=== PATIENT | male | born 1950 | race Caucasian/White ===

== ENCOUNTER 2021-03-03 08:00 | Inpatient (IN) ==
[2021-03-03] MEDS ORDERED: GLUCAGON 1 MG VIAL IM PRN (08:05)
[2021-03-03] MEDS ORDERED: DEXTROSE 50% 25 GM/50 ML SYRINGE IV PRN (08:05)
[2021-03-03] MEDS ORDERED: NITROGLYCERIN SL 0.4 MG TABLET SL PRN (11:02)
[2021-03-03] MEDS ORDERED: MORPHINE 2 MG/1 ML SYRINGE IV PRN (11:02)
[2021-03-03] MEDS ORDERED: CLORAZEPATE 3.75 MG TABLET PO PRN (11:02)
[2021-03-03 16:03] LABS: Basophils # 0.1 10*3/uL (0.0-0.2); Basophils % 0.5 % (0.0-0.8); Eosinophils # 0.2 10*3/uL (0.0-0.87); Eosinophils % 1.5 % (0.00-10.9); Hematocrit 36.8 VOL% (42.0-52.0); Immature Granulocytes % 0.6 %; Immature Granulocytes Absolute 0.07 #; Lymphocytes # 1.1 10*3/uL (1.4-4.0); Lymphocytes % 9.5 % (21.2-54.2); Mean Corpuscular HGB Conc 32.6 GM/DL (32-36); Mean Corpuscular Volume 88.5 FL (87-102); Mean Platelet Volume 9.6 FL (9.6-12.0); Monocytes % 7.4 % (1.7-12.7); Neutrophils % 80.5 % (38.7-73.9); Platelet Count 230 T/CUMM (130-400); Red Blood Count 4.16 MC/CUMM (3.8-5.5); Red Cell Distribution Width 14.5 % (9.3-17.3); White Blood Count 11.5 T/CUMM (4-12)
[2021-03-03 16:23] LABS: Albumin 3.3 G/DL (3.4-5.0); Bilirubin,Total 1.1 MG/DL (0.20-1.00); Calcium 9.4 MG/DL (8.5-10.1); Potassium 3.8 MMOL/L (3.5-5.1); Total Protein 7.3 G/DL (6.4-8.2)
[2021-03-03 16:26] LABS: Osmolality,Calculated 280.2 MOS/KG (273-304)
[2021-03-03 16:47] LABS: Allen Test Positive; Pt O2 Delivery Device Room Air
[2021-03-03 16:48] LABS: ABG Base Excess 10.9 MMOL/L (-2.5-2.5); ABG HCO3 34.6 MMOL/L (20-26); ABG Oxygen Saturation 91.6 % (95-100); ABG PCO2 53.7 MM HG (35-48); ABG PH 7.448 (7.35-7.45); ABG PO2 59.8 MM HG (80-95); ABG TCO2 32.7 MMOL/L (23-27)
[2021-03-03] MEDS: CHLORHEXIDINE 4% SOLN 118 ML BOTTLE TOP SCH ×2 (17:36→21:05)
[2021-03-03] MEDS: CHLORHEXIDINE 0.12% ORAL RINSE 60 ML BOTTLE SWISH/SPIT SCH (21:04)
[2021-03-04] MEDS ORDERED: hydrALAZINE 20 MG/1 ML VIAL IV PRN (00:06)
[2021-03-04] MEDS ORDERED: PAPAVERINE 60 MG/2 ML VIAL ONE (04:13)
[2021-03-04] MEDS ORDERED: VANCOMYCIN 500 MG VIAL ONE (04:14)
[2021-03-04] MEDS ORDERED: VANCOMYCIN 1,000 MG VIAL ONE (04:14)
[2021-03-04] MEDS: CHLORHEXIDINE 4% SOLN 118 ML BOTTLE TOP SCH (04:30)
[2021-03-04] MEDS ORDERED: AMIODARONE INJ 150 MG in DEXTROSE 5% 100 ML IV ONE ×2 (04:54→05:30)
[2021-03-04] MEDS ORDERED: DILTIAZEM 50 MG/10 ML VIAL IV ONE ×2 (04:55→05:30)
[2021-03-04] MEDS ORDERED: VECURONIUM 10 MG VIAL IV ONE (04:59)
[2021-03-04] MEDS ORDERED: PHENYLEPHRINE 10 MG/1 ML VIAL IV ONE ×3 (04:59→11:10)
[2021-03-04] MEDS ORDERED: AMIODARONE INJ 450 MG in DEXTROSE 5% 241 ML IV SCH ×2 (05:00→11:45)
[2021-03-04] MEDS ORDERED: CEFUROXIME INJ 1,500 MG in SODIUM CHLORIDE 0.9% 100 ML IV ONE (05:00)
[2021-03-04] MEDS ORDERED: SODIUM CHLORIDE 0.9% 100 ML IV ONE (05:02)
[2021-03-04] MEDS ORDERED: SODIUM CHLORIDE 0.9% 1,000 ML IV ONE (05:02)
[2021-03-04] MEDS ORDERED: ETOMIDATE 40 MG/20 ML VIAL IV ONE (05:02)
[2021-03-04] MEDS ORDERED: NITROGLYCERIN DRIP 50 MG/250 ML BOTTLE IV ONE (05:02)
[2021-03-04] MEDS ORDERED: AMINOCAPROIC ACID 5,000 MG/20 ML VIAL ONE (05:02)
[2021-03-04] MEDS ORDERED: SODIUM CHLORIDE 0.9% 250 ML IV ONE ×2 (05:02→10:03)
[2021-03-04] MEDS ORDERED: ePHEDrine 50 MG/ML VIAL ONE (05:02)
[2021-03-04] MEDS ORDERED: CALCIUM CHLORIDE 1,000 MG/10 ML VIAL IV ONE ×3 (05:02→11:24)
[2021-03-04] MEDS ORDERED: LACTATED RINGERS 0 ML IV ONE (05:02)
[2021-03-04] MEDS ORDERED: MIDAZOLAM 10 MG/2 ML VIAL ONE ×4 (05:02→09:07)
[2021-03-04] MEDS ORDERED: SUFentanil 250 MCG/5 ML AMP ONE ×2 (05:02→05:03)
[2021-03-04] MEDS ORDERED: LIDOCAINE 2% 5 ML VIAL ONE ×2 (05:16→10:58)
[2021-03-04] MEDS ORDERED: MINERAL OIL/PETROLATUM OPH OINT 3.5 GM TUBE ONE (05:35)
[2021-03-04] MEDS ORDERED: DILTIAZEM INJ 100 MG in SODIUM CHLORIDE 0.9% 100 ML IV SCH (06:00)
[2021-03-04] MEDS ORDERED: ADENOSINE 6 MG/2 ML VIAL ONE (07:10)
[2021-03-04 07:39] LABS: ABG Base Excess 5.6 MMOL/L (-2.5-2.5); ABG HCO3 29.1 MMOL/L (20-26); ABG Oxygen Saturation 80.6 % (95-100); ABG PH 7.312 (7.35-7.45); ABG PO2 51.2 MM HG (80-95); ABG TCO2 30.9 MMOL/L (23-27); Glucose Heart Surgery 228 MG/DL (74-106); Hematocrit Heart Surgery 37.2 PERCENT (42-52); Hemoglobin Heart Surgery 12.1 G/DL (14.0-18.0); Ionized Calcium Arterial 1.16 MMOL/L (1.21-1.46); PH Patient Temp Arterial 7.312; PO2 Patient Temp Arterial 51.2 MM HG; Patient Temperature 37 CELCIUS; Potassium Heart/CVR 3.8 MMOL/L (3.5-5.1); Sodium Heart/CVR 138 MMOL/L (135-145)
[2021-03-04] MEDS ORDERED: POTASSIUM CHLORIDE RIDER 20 MEQ/100 ML PREMIX IV ONE (08:02)
[2021-03-04] MEDS ORDERED: ALBUMIN 5% 25.0 GM/500 ML VIAL IV ONE (08:02)
[2021-03-04] MEDS ORDERED: PHENYLEPHRINE DRIP 40 MG/250 ML PREMIX IV ONE (08:02)
[2021-03-04 08:24] LABS: Bilirubin,Urine Negative (Negative); Blood, Urine Small mg/dL (Negative); Glucose,Urine (UA) 50 mg/dL (Negative); Ketones,Urine 20 mg/dL (Negative); Nitrite,Urine Negative (Negative); Protein,Urine 30 MG/DL; RBC,Urine 7 /HPF (0-4); Urine Appearance CLEAR (Clear); Urine Color Yellow (Yellow); Urine Specific Gravity 1.017 (1.001-1.035); Urine Urobilinogen < 2.0 EU/DL (0.2-1.0)
[2021-03-04 08:44] LABS: Hematocrit Heart Surgery 25.9 PERCENT (42-52); Hemoglobin Heart Surgery 8.3 G/DL (14.0-18.0); PCO2 Patient Temp Venous 43.5 MM HG; PH Patient Temp Venous 7.453; PO2 Patient Temp Venous 33.8 MM HG; Potassium Heart/CVR 4.5 MMOL/L (3.5-5.1); VBG Base Excess 6.2 MEQ/L (0-4); VBG HCO3 29.8 MEQ/L (24-28); VBG Oxygen Saturation 76.7 %; VBG PCO2 50.3 MMHG (41-51); VBG PH 7.409; VBG PO2 41.7 MMHG (17-40); VBG Total CO2 29.7 MMOL/L
[2021-03-04] MEDS ORDERED: SEVOFLURANE 1 UNIT/15 MINUTE INH ONE (08:55)
[2021-03-04] MEDS ORDERED: LACTATED RINGERS 1,000 ML IV ONE (08:55)
[2021-03-04 09:22] LABS: Hemoglobin Heart Surgery 8.7 G/DL (14.0-18.0); PCO2 Patient Temp Venous 36.6 MM HG; PH Patient Temp Venous 7.512; PO2 Patient Temp Venous 32.4 MM HG; Potassium Heart/CVR 4.4 MMOL/L (3.5-5.1); VBG Base Excess 6.3 MEQ/L (0-4); VBG HCO3 29.8 MEQ/L (24-28); VBG Oxygen Saturation 77.8 %; VBG PCO2 42.3 MMHG (41-51); VBG PH 7.467; VBG Total CO2 28.3 MMOL/L
[2021-03-04] MEDS ORDERED: HEPARIN/NACL 0.9% 2 UNITS/ML 1,000 UNIT/500 ML BAG IV ONE (09:41)
[2021-03-04 09:47] LABS: PCO2 Patient Temp Venous 37.1 MM HG; PH Patient Temp Venous 7.511; PO2 Patient Temp Venous 31.3 MM HG; Potassium Heart/CVR 4.8 MMOL/L (3.5-5.1); VBG Base Excess 5.7 MEQ/L (0-4); VBG HCO3 29.3 MEQ/L (24-28); VBG Oxygen Saturation 72.6 %; VBG PCO2 38.8 MMHG (41-51); VBG PH 7.496; VBG PO2 33.6 MMHG (17-40); VBG Total CO2 30.5 MMOL/L
[2021-03-04] MEDS: SODIUM CHLORIDE 0.9% 1,000 ML IV SCH ×2 (10:09→10:10)
[2021-03-04] MEDS: CHLORHEXIDINE 0.12% ORAL RINSE 60 ML BOTTLE SWISH/SPIT SCH ×2 (10:10→21:11)
[2021-03-04] MEDS ORDERED: DOBUTamine 500 MG/250 ML PREMIX IV ONE ×2 (10:21→11:15)
[2021-03-04] MEDS ORDERED: THROMBIN TOPICAL (RECOMBINANT) 5,000 UNIT VIAL TOP ONE (10:29)
[2021-03-04 10:49] LABS: ABG Base Excess 2.4 MMOL/L (-2.5-2.5); ABG HCO3 26.6 MMOL/L (20-26); ABG PH 7.316 (7.35-7.45); ABG TCO2 27.5 MMOL/L (23-27); Glucose Heart Surgery 350 MG/DL (74-106); Hematocrit Heart Surgery 28.1 PERCENT (42-52); Hemoglobin Heart Surgery 9.1 G/DL (14.0-18.0); Ionized Calcium Arterial 1.18 MMOL/L (1.21-1.46); PH Patient Temp Arterial 7.316; Patient Temperature 37 CELCIUS; Potassium Heart/CVR 3.7 MMOL/L (3.5-5.1); Sodium Heart/CVR 131 MMOL/L (135-145)
[2021-03-04] MEDS ORDERED: methylPREDNISolone SOD SUC 1,000 MG/8 ML VIAL ONE (10:58)
[2021-03-04] MEDS ORDERED: MAGNESIUM SULFATE 5 GM/10 ML VIAL IV ONE (10:58)
[2021-03-04] MEDS ORDERED: ALBUMIN 25% 25 GM/100 ML VIAL IV ONE (10:58)
[2021-03-04] MEDS ORDERED: DEXTROSE 5% KCL 20 MEQ 40 MEQ/2,000 ML BAG IV ONE (10:59)
[2021-03-04] MEDS ORDERED: HEPARIN 10,000 UNIT/10 ML VIAL ONE (10:59)
[2021-03-04] MEDS ORDERED: MANNITOL 12.5 GM/50 ML VIAL IV ONE (10:59)
[2021-03-04] MEDS ORDERED: FUROSEMIDE 20 MG/2 ML VIAL ONE (10:59)
[2021-03-04] MEDS ORDERED: PROTAMINE SULFATE 250 MG/25 ML VIAL IV ONE (10:59)
[2021-03-04] MEDS ORDERED: PROTAMINE SULFATE 50 MG/5 ML VIAL IV ONE (11:00)
[2021-03-04] MEDS ORDERED: SODIUM BICARBONATE 50 MEQ/50 ML VIAL IV ONE (11:00)
[2021-03-04] MEDS ORDERED: AMIODARONE 450 MG/9 ML VIAL IV ONE (11:15)
[2021-03-04] MEDS: PHENYLEPHRINE DRIP 40 MG/250 ML PREMIX IV PRN ×2 (11:45→20:20)
[2021-03-04] MEDS ORDERED: DOBUTamine 500 MG/250 ML PREMIX IV PRN (11:45)
[2021-03-04] MEDS: SODIUM CHLORIDE 0.45% 1,000 ML IV SCH ×2 (11:45)
[2021-03-04] MEDS: LACTATED RINGERS 1,000 ML IV PRN ×2 (11:45→13:40)
[2021-03-04] MEDS ORDERED: MAGNESIUM SULF RIDER 4 GM/100 ML PREMIX IV PRN (12:12)
[2021-03-04] MEDS ORDERED: INSULIN REGULAR 100 UNIT/ML IV ONE (12:12)
[2021-03-04] MEDS ORDERED: NITROPRUSSIDE 100 MG in DEXTROSE 5% 250 ML IV PRN (12:12)
[2021-03-04] MEDS ORDERED: LACTATED RINGERS 250 ML IV PRN (12:12)
[2021-03-04] MEDS ORDERED: ONDANSETRON 4 MG/2 ML VIAL IV PRN (12:12)
[2021-03-04] MEDS ORDERED: CALCIUM CHLORIDE 1,000 MG/10 ML SYRINGE IV PRN (12:12)
[2021-03-04] MEDS ORDERED: MIDAZOLAM 10 MG/2 ML VIAL IV PRN (12:12)
[2021-03-04] MEDS ORDERED: CHLORHEXIDINE 4% SOLN 118 ML BOTTLE TOP PRN (12:12)
[2021-03-04] MEDS ORDERED: INSULIN REGULAR DRIP 100 ML IV SCH (12:12)
[2021-03-04] MEDS ORDERED: MAGNESIUM SULF RIDER 2 GM/50 ML PREMIX IV PRN (12:12)
[2021-03-04] MEDS ORDERED: VECURONIUM 10 MG VIAL IV PRN ×2 (12:12)
[2021-03-04] MEDS ORDERED: ACETAMINOPHEN 650 MG SUPP RECTAL PRN (12:12)
[2021-03-04] MEDS ORDERED: INSULIN REGULAR 100 UNIT/ML IV PRN (12:12)
[2021-03-04 12:21] LABS: ABG HCO3 25.3 MMOL/L (20-26); ABG PH 7.327 (7.35-7.45); ABG PO2 91.5 MM HG (80-95); ABG TCO2 25.4 MMOL/L (23-27); Glucose Heart Surgery 323 MG/DL (74-106); Hematocrit Heart Surgery 31.9 PERCENT (42-52); Hemoglobin Heart Surgery 10.3 G/DL (14.0-18.0); Potassium Heart/CVR 3.8 MMOL/L (3.5-5.1)
[2021-03-04 12:31] LABS: Basophils # 0.1 10*3/uL (0.0-0.2); Basophils % 0.2 % (0.0-0.8); Hematocrit 30.4 VOL% (42.0-52.0); Hemoglobin 9.9 GM/DL (14.0-18.0); Immature Granulocytes Absolute 0.22 #; Lymphocytes # 0.3 10*3/uL (1.4-4.0); Lymphocytes % 1.3 % (21.2-54.2); Mean Corpuscular HGB Conc 32.6 GM/DL (32-36); Mean Corpuscular Volume 89.4 FL (87-102); Mean Platelet Volume 9.7 FL (9.6-12.0); Monocytes % 6.7 % (1.7-12.7); Neutrophils % 90.8 % (38.7-73.9); Platelet Count 260 T/CUMM (130-400); Red Cell Distribution Width 14.6 % (9.3-17.3); White Blood Count 21.2 T/CUMM (4-12)
[2021-03-04] MEDS ORDERED: DEXTROSE 50% 25 GM/50 ML SYRINGE IV PRN ×2 (12:38→12:39)
[2021-03-04 12:43] LABS: INR 1.1; PT Patient Result 12.4 SECS (10.5-12.0); Partial Thromboplastin Time 28.8 SECS (23.8-32.1)
[2021-03-04] MEDS: POTASSIUM CHLORIDE RIDER 20 MEQ/100 ML PREMIX IV PRN ×3 (12:45→23:41)
[2021-03-04 12:54] LABS: Albumin 2.7 G/DL (3.4-5.0); Bilirubin,Total 1.8 MG/DL (0.20-1.00); Calcium 9.6 MG/DL (8.5-10.1); Osmolality,Calculated 286.1 MOS/KG (273-304); Potassium 3.9 MMOL/L (3.5-5.1); Total Protein 5.5 G/DL (6.4-8.2)
[2021-03-04] MEDS: POTASSIUM CHLORIDE RIDER 10 MEQ/100 ML PREMIX IV PRN ×2 (13:15→20:55)
[2021-03-04 13:44] LABS: Band Neutrophils 3 % (0-10); Lymphocytes 3 % (20-55); Platelet Estimate Normal; Segmented Neutrophils 90 % (50-85); Total Cells Counted 100
[2021-03-04 13:45] LABS: Microcytosis Slight; Ovalocytes Slight; Polychromasia Slight
[2021-03-04] MEDS: ALBUMIN 5% 12.5 GM/250 ML VIAL IV PRN ×2 (15:00→15:32)
[2021-03-04 15:29] LABS: ABG Base Excess 3.1 MMOL/L (-2.5-2.5); ABG HCO3 27.2 MMOL/L (20-26); ABG Oxygen Saturation 99.7 % (95-100); ABG PCO2 40.4 MM HG (35-48); Glucose Heart Surgery 316 MG/DL (74-106); Hematocrit Heart Surgery 38.7 PERCENT (42-52); Hemoglobin Heart Surgery 12.6 G/DL (14.0-18.0)
[2021-03-04 16:07] LABS: CKMB % 10.7 %
[2021-03-04 16:13] LABS: High Sensitive Troponin I* 5032.1 ng/L (0-78)
[2021-03-04 18:13] LABS: ABG Base Excess 3.2 MMOL/L (-2.5-2.5); ABG HCO3 27.3 MMOL/L (20-26); ABG Oxygen Saturation 99.7 % (95-100); ABG PH 7.436 (7.35-7.45); ABG TCO2 25.2 MMOL/L (23-27); Glucose Heart Surgery 268 MG/DL (74-106); Hematocrit Heart Surgery 29.8 PERCENT (42-52); Hemoglobin Heart Surgery 9.6 G/DL (14.0-18.0); Potassium Heart/CVR 3.6 MMOL/L (3.5-5.1)
[2021-03-04] MEDS: AMIODARONE INJ 450 MG in DEXTROSE 5% 241 ML IV SCH (18:39)
[2021-03-04] MEDS ORDERED: FUROSEMIDE 40 MG/4 ML VIAL IV PRN (18:59)
[2021-03-04] MEDS: CEFUROXIME INJ 1,500 MG in SODIUM CHLORIDE 0.9% 100 ML IV SCH (20:01)
[2021-03-04 20:15] LABS: ABG Base Excess 2.7 MMOL/L (-2.5-2.5); ABG HCO3 26.9 MMOL/L (20-26); ABG PCO2 45.9 MM HG (35-48); ABG PH 7.395 (7.35-7.45); ABG TCO2 25.6 MMOL/L (23-27); Glucose Heart Surgery 238 MG/DL (74-106); Hematocrit Heart Surgery 30.8 PERCENT (42-52); Potassium Heart/CVR 3.8 MMOL/L (3.5-5.1)
[2021-03-04 20:41] LABS: CKMB % 10.2 %
[2021-03-04 20:45] LABS: High Sensitive Troponin I* 13665.2 ng/L (0-78)
[2021-03-04] MEDS: MORPHINE 10 MG/1 ML VIAL IV PRN (21:06)
[2021-03-04 22:49] LABS: ABG Base Excess 2.7 MMOL/L (-2.5-2.5); ABG HCO3 26.7 MMOL/L (20-26); ABG Oxygen Saturation 90.7 % (95-100); ABG PCO2 47.3 MM HG (35-48); ABG PH 7.385 (7.35-7.45); ABG PO2 61.6 MM HG (80-95); ABG TCO2 25.9 MMOL/L (23-27); Glucose Heart Surgery 199 MG/DL (74-106); Hematocrit Heart Surgery 30.2 PERCENT (42-52); Hemoglobin Heart Surgery 9.8 G/DL (14.0-18.0); Potassium Heart/CVR 3.9 MMOL/L (3.5-5.1)
[2021-03-04 23:31] LABS: ABG Base Excess 2.4 MMOL/L (-2.5-2.5); ABG HCO3 26.4 MMOL/L (20-26); ABG Oxygen Saturation 90.6 % (95-100); ABG PCO2 50.6 MM HG (35-48); ABG PH 7.359 (7.35-7.45); ABG TCO2 26.2 MMOL/L (23-27); Glucose Heart Surgery 193 MG/DL (74-106); Hematocrit Heart Surgery 29.8 PERCENT (42-52); Hemoglobin Heart Surgery 9.6 G/DL (14.0-18.0); Potassium Heart/CVR 3.8 MMOL/L (3.5-5.1)
[2021-03-05] MEDS: POTASSIUM CHLORIDE RIDER 10 MEQ/100 ML PREMIX IV PRN (00:15)
[2021-03-05] MEDS: MORPHINE 10 MG/1 ML VIAL IV PRN ×3 (01:09→10:39)
[2021-03-05 02:16] LABS: ABG Base Excess 2.7 MMOL/L (-2.5-2.5); ABG HCO3 26.7 MMOL/L (20-26); ABG Oxygen Saturation 92.4 % (95-100); ABG PCO2 51.9 MM HG (35-48); ABG PH 7.355 (7.35-7.45); ABG PO2 67.7 MM HG (80-95); ABG TCO2 26.6 MMOL/L (23-27); Glucose Heart Surgery 152 MG/DL (74-106); Hematocrit Heart Surgery 30.1 PERCENT (42-52); Hemoglobin Heart Surgery 9.7 G/DL (14.0-18.0)
[2021-03-05] MEDS: POTASSIUM CHLORIDE RIDER 20 MEQ/100 ML PREMIX IV PRN (02:58)
[2021-03-05] MEDS ORDERED: NITROGLYCERIN DRIP 50 MG/250 ML BOTTLE IV ONE (03:21)
[2021-03-05] MEDS: NITROGLYCERIN DRIP 50 MG/250 ML BOTTLE IV PRN ×2 (03:23→16:37)
[2021-03-05 04:10] LABS: ABG Base Excess 2.5 MMOL/L (-2.5-2.5); ABG HCO3 28.5 MMOL/L (20-26); ABG Oxygen Saturation 84.1 % (95-100); ABG PCO2 51.1 MM HG (35-48); ABG PH 7.364 (7.35-7.45); ABG PO2 50.5 MM HG (80-95); ABG TCO2 30.1 MMOL/L (23-27); Glucose Heart Surgery 123 MG/DL (74-106); Hemoglobin Heart Surgery 10.1 G/DL (14.0-18.0); Potassium Heart/CVR 4.3 MMOL/L (3.5-5.1)
[2021-03-05 04:12] LABS: Basophils % 0.1 % (0.0-0.8); Hematocrit 28.8 VOL% (42.0-52.0); Hemoglobin 9.5 GM/DL (14.0-18.0); Immature Granulocytes % 0.7 %; Immature Granulocytes Absolute 0.17 #; Lymphocytes # 0.4 10*3/uL (1.4-4.0); Lymphocytes % 1.4 % (21.2-54.2); Mean Corpuscular Volume 90.3 FL (87-102); Mean Platelet Volume 9.8 FL (9.6-12.0); Monocytes % 7.1 % (1.7-12.7); Neutrophils % 90.7 % (38.7-73.9); Platelet Count 230 T/CUMM (130-400); Red Blood Count 3.19 MC/CUMM (3.8-5.5); Red Cell Distribution Width 14.7 % (9.3-17.3); White Blood Count 25.7 T/CUMM (4-12)
[2021-03-05 04:29] LABS: Albumin 3.2 G/DL (3.4-5.0); Bilirubin,Direct 0.32 MG/DL (0.0-0.20); Bilirubin,Total 0.9 MG/DL (0.20-1.00); CKMB % 11.9 %; Osmolality,Calculated 286.4 MOS/KG (273-304); Potassium 4.3 MMOL/L (3.5-5.1); Total Protein 6.3 G/DL (6.4-8.2)
[2021-03-05 04:33] LABS: High Sensitive Troponin I* 18317.8 ng/L (0-78)
[2021-03-05] MEDS ORDERED: ALBUTEROL/IPRATROPIUM 3 ML NEB RESP TX ONE (04:37)
[2021-03-05] MEDS: ALBUTEROL/IPRATROPIUM 3 ML NEB RESP TX SCH ×6 (04:38→23:00)
[2021-03-05] MEDS: MIDAZOLAM 2 MG/2 ML VIAL IV PRN ×3 (04:45→14:12)
[2021-03-05] MEDS: methylPREDNISolone SOD SUC 40 MG/1 ML VIAL IV SCH ×3 (04:45→20:14)
[2021-03-05 04:47] LABS: Band Neutrophils 1 % (0-10); Lymphocytes 2 % (20-55); Microcytosis Slight; Ovalocytes Few; Platelet Estimate Normal; Segmented Neutrophils 90 % (50-85); Total Cells Counted 100
[2021-03-05] MEDS: DEXMEDETOMIDINE 200 MCG in SODIUM CHLORIDE 0.9% 48 ML IV PRN ×4 (04:53→18:21)
[2021-03-05] MEDS: LACTATED RINGERS 1,000 ML IV PRN ×5 (05:15→18:11)
[2021-03-05 08:02] LABS: ABG Base Excess 2.7 MMOL/L (-2.5-2.5); ABG HCO3 28.6 MMOL/L (20-26); ABG Oxygen Saturation 93.8 % (95-100); ABG PCO2 50.9 MM HG (35-48); ABG PH 7.367 (7.35-7.45); ABG TCO2 30.1 MMOL/L (23-27); Glucose Heart Surgery 127 MG/DL (74-106); Potassium Heart/CVR 4.5 MMOL/L (3.5-5.1)
[2021-03-05] MEDS: CEFUROXIME INJ 1,500 MG in SODIUM CHLORIDE 0.9% 100 ML IV SCH ×2 (08:12→20:14)
[2021-03-05] MEDS: CHLORHEXIDINE 0.12% ORAL RINSE 60 ML BOTTLE SWISH/SPIT SCH ×2 (09:25→20:15)
[2021-03-05] MEDS: AMIODARONE INJ 450 MG in DEXTROSE 5% 241 ML IV SCH (09:29)
[2021-03-05] MEDS ORDERED: FUROSEMIDE 40 MG/4 ML VIAL IV ONE ×2 (10:41→19:37)
[2021-03-05 11:08] LABS: ABG HCO3 24.4 MMOL/L (20-26); ABG Oxygen Saturation 96.5 % (95-100); ABG PCO2 48.8 MM HG (35-48); ABG PH 7.338 (7.35-7.45); ABG PO2 84.3 MM HG (80-95); ABG TCO2 24.1 MMOL/L (23-27); Glucose Heart Surgery 208 MG/DL (74-106); Hematocrit Heart Surgery 29.8 PERCENT (42-52); Hemoglobin Heart Surgery 9.6 G/DL (14.0-18.0)
[2021-03-05] MEDS: INSULIN REGULAR 100 UNIT/ML SUBCUT SCH ×3 (11:21→20:16)
[2021-03-05 15:52] LABS: ABG Base Excess 1.8 MMOL/L (-2.5-2.5); ABG Oxygen Saturation 98.4 % (95-100); ABG PCO2 45.1 MM HG (35-48); ABG PH 7.387 (7.35-7.45); ABG TCO2 24.9 MMOL/L (23-27); Glucose Heart Surgery 198 MG/DL (74-106); Hematocrit Heart Surgery 29.3 PERCENT (42-52); Hemoglobin Heart Surgery 9.5 G/DL (14.0-18.0); Potassium Heart/CVR 4.7 MMOL/L (3.5-5.1)
[2021-03-05] MEDS ORDERED: ACETAMINOPHEN 325 MG/10.15 ML UDCUP PO PRN (16:47)
[2021-03-05] MEDS: ALBUMIN 5% 12.5 GM/250 ML VIAL IV PRN ×3 (17:25→20:36)
[2021-03-05 17:35] LABS: ABG Base Excess 1.5 MMOL/L (-2.5-2.5); ABG HCO3 25.8 MMOL/L (20-26); ABG Oxygen Saturation 99.6 % (95-100); ABG PCO2 45.4 MM HG (35-48); ABG PH 7.381 (7.35-7.45); ABG TCO2 24.8 MMOL/L (23-27); Glucose Heart Surgery 209 MG/DL (74-106); Hematocrit Heart Surgery 28.4 PERCENT (42-52); Hemoglobin Heart Surgery 9.1 G/DL (14.0-18.0); Potassium Heart/CVR 4.7 MMOL/L (3.5-5.1)
[2021-03-05] MEDS ORDERED: DEXMEDETOMIDINE 400 MCG in SODIUM CHLORIDE 0.9% 96 ML IV PRN (18:40)
[2021-03-05 18:48] LABS: CKMB % 12.6 %
[2021-03-05 18:50] LABS: High Sensitive Troponin I* 32939.1 ng/L (0-78)
[2021-03-05] MEDS: SODIUM CHLORIDE 0.45% 1,000 ML IV SCH ×2 (19:58)
[2021-03-06] MEDS: AMIODARONE INJ 450 MG in DEXTROSE 5% 241 ML IV SCH ×2 (00:19→15:49)
[2021-03-06] MEDS: ALBUTEROL/IPRATROPIUM 3 ML NEB RESP TX SCH ×6 (07:46→23:08)
[2021-03-06] MEDS ORDERED: METOPROLOL SUCCINATE XL 25 MG TABLET PO ONE (08:53)
[2021-03-06] MEDS ORDERED: cloNIDine 0.1 MG TABLET ONE (08:53)
[2021-03-06] MEDS ORDERED: METOPROLOL TARTRATE 25 MG TABLET ONE (08:54)
[2021-03-06] MEDS: INSULIN REGULAR 100 UNIT/ML SUBCUT SCH ×4 (09:13→20:38)
[2021-03-06] MEDS ORDERED: HEPARIN/NACL 0.9% 2 UNITS/ML 1,000 UNIT/500 ML BAG IV ONE (09:27)
[2021-03-06] MEDS: MORPHINE 10 MG/1 ML VIAL IV PRN (09:35)
[2021-03-06] MEDS ORDERED: AMIODARONE 200 MG TABLET ONE (10:16)
[2021-03-06 13:04] LABS: ABG Base Excess 0.7 MMOL/L (-2.5-2.5); ABG HCO3 25.3 MMOL/L (20-26); ABG Oxygen Saturation 97.1 % (95-100); ABG PCO2 40.5 MM HG (35-48); ABG PH 7.414 (7.35-7.45); ABG PO2 101.1 MM HG (80-95); ABG TCO2 26.6 MMOL/L (23-27); Glucose Heart Surgery 231 MG/DL (74-106); Hemoglobin Heart Surgery 9.2 G/DL (14.0-18.0); Potassium Heart/CVR 4.4 MMOL/L (3.5-5.1)
[2021-03-06 13:04] LABS: ABG Base Excess 1.6 MMOL/L (-2.5-2.5); ABG HCO3 25.3 MMOL/L (20-26); ABG Oxygen Saturation 96.2 % (95-100); ABG PCO2 35.9 MM HG (35-48); ABG PH 7.466 (7.35-7.45); ABG PO2 83.3 MM HG (80-95); ABG TCO2 26.4 MMOL/L (23-27)
[2021-03-06 13:05] LABS: Glucose Heart Surgery 219 MG/DL (74-106); Hemoglobin Heart Surgery 9.3 G/DL (14.0-18.0); Potassium Heart/CVR 4.4 MMOL/L (3.5-5.1)
[2021-03-06] MEDS: methylPREDNISolone SOD SUC 40 MG/1 ML VIAL IV SCH ×3 (13:13→20:39)
[2021-03-06] MEDS: CHLORHEXIDINE 0.12% ORAL RINSE 60 ML BOTTLE SWISH/SPIT SCH ×2 (13:14→20:44)
[2021-03-06] MEDS: SODIUM CHLORIDE 0.45% 1,000 ML IV SCH ×2 (13:14→13:15)
[2021-03-06] MEDS: LACTATED RINGERS 1,000 ML IV PRN (13:15)
[2021-03-06] MEDS: NITROGLYCERIN DRIP 50 MG/250 ML BOTTLE IV PRN (13:20)
[2021-03-06 14:22] LABS: Calcium 8.7 MG/DL (8.5-10.1)
[2021-03-06 14:23] LABS: Albumin 2.9 G/DL (3.4-5.0); Bilirubin,Direct 0.276 MG/DL (0.0-0.20); Osmolality,Calculated 294.7 MOS/KG (273-304); Potassium 4.5 MMOL/L (3.5-5.1); Total Protein 5.6 G/DL (6.4-8.2)
[2021-03-06 17:38] LABS: Basophils % 0.1 % (0.0-0.8); Hematocrit 27.9 VOL% (42.0-52.0); Hemoglobin 8.7 GM/DL (14.0-18.0); Immature Granulocytes % 0.6 %; Immature Granulocytes Absolute 0.13 #; Lymphocytes # 0.6 10*3/uL (1.4-4.0); Lymphocytes % 2.7 % (21.2-54.2); Mean Corpuscular HGB Conc 31.2 GM/DL (32-36); Mean Corpuscular Volume 93.9 FL (87-102); Mean Platelet Volume 10.8 FL (9.6-12.0); Monocytes % 6.1 % (1.7-12.7); Neutrophils % 90.5 % (38.7-73.9); Platelet Count 177 T/CUMM (130-400); Red Blood Count 2.97 MC/CUMM (3.8-5.5); Red Cell Distribution Width 15.2 % (9.3-17.3); White Blood Count 21.4 T/CUMM (4-12)
[2021-03-06 19:23] LABS: Band Neutrophils 1 % (0-10); Hypochromia Slight; Lymphocytes 2 % (20-55); Ovalocytes Few; Platelet Estimate Adequate; Segmented Neutrophils 91 % (50-85); Total Cells Counted 100
[2021-03-06] MEDS: ASPIRIN CHEW 81 MG TABLET PO SCH (20:39)
[2021-03-06] MEDS ORDERED: cloNIDine 0.1 MG TABLET PO SCH (21:00)
[2021-03-06] MEDS: METOPROLOL TARTRATE 25 MG TABLET PO SCH (23:59)
[2021-03-07] MEDS: INSULIN REGULAR 100 UNIT/ML SUBCUT SCH ×7 (00:19→23:42)
[2021-03-07] MEDS: NITROGLYCERIN DRIP 50 MG/250 ML BOTTLE IV PRN ×2 (00:21→17:01)
[2021-03-07] MEDS: ALBUTEROL/IPRATROPIUM 3 ML NEB RESP TX SCH ×6 (03:30→23:10)
[2021-03-07] MEDS: methylPREDNISolone SOD SUC 40 MG/1 ML VIAL IV SCH ×3 (04:00→21:23)
[2021-03-07 04:31] LABS: ABG Base Excess 4.6 MMOL/L (-2.5-2.5); ABG HCO3 28.6 MMOL/L (20-26); ABG PCO2 41.1 MM HG (35-48); ABG PH 7.455 (7.35-7.45); ABG PO2 79.2 MM HG (80-95); ABG TCO2 26.5 MMOL/L (23-27); Glucose Heart Surgery 164 MG/DL (74-106); Hemoglobin Heart Surgery 9.3 G/DL (14.0-18.0)
[2021-03-07 04:54] LABS: Basophils % 0.1 % (0.0-0.8); Hematocrit 27.8 VOL% (42.0-52.0); Hemoglobin 9.4 GM/DL (14.0-18.0); Immature Granulocytes Absolute 0.21 #; Lymphocytes # 0.4 10*3/uL (1.4-4.0); Mean Corpuscular HGB Conc 33.8 GM/DL (32-36); Mean Corpuscular Volume 89.1 FL (87-102); Mean Platelet Volume 10.5 FL (9.6-12.0); Neutrophils % 90.9 % (38.7-73.9); Platelet Count 198 T/CUMM (130-400); Red Blood Count 3.12 MC/CUMM (3.8-5.5); Red Cell Distribution Width 14.8 % (9.3-17.3); White Blood Count 21.6 T/CUMM (4-12)
[2021-03-07 05:24] LABS: Albumin 2.9 G/DL (3.4-5.0); Bilirubin,Direct 0.23 MG/DL (0.0-0.20); Bilirubin,Total 0.7 MG/DL (0.20-1.00); Osmolality,Calculated 296.8 MOS/KG (273-304); Potassium 3.9 MMOL/L (3.5-5.1); Total Protein 5.7 G/DL (6.4-8.2)
[2021-03-07 05:25] LABS: Hypochromia 1+; Lymphocytes 1 % (20-55); Microcytosis 1+; Platelet Estimate Adequate; Segmented Neutrophils 94 % (50-85); Total Cells Counted 100
[2021-03-07] MEDS: POTASSIUM CHLORIDE RIDER 10 MEQ/100 ML PREMIX IV PRN (06:41)
[2021-03-07] MEDS: PANTOPRAZOLE 40 MG VIAL IV SCH (08:57)
[2021-03-07] MEDS ORDERED: cloNIDine 0.1 MG TABLET PO SCH (09:00)
[2021-03-07] MEDS ORDERED: AMIODARONE 200 MG TABLET PO SCH (09:00)
[2021-03-07] MEDS: ASPIRIN CHEW 81 MG TABLET PO SCH (09:24)
[2021-03-07] MEDS: METOPROLOL TARTRATE 25 MG TABLET PO SCH (09:25)
[2021-03-07] MEDS: CHLORHEXIDINE 0.12% ORAL RINSE 60 ML BOTTLE SWISH/SPIT SCH ×2 (09:25→21:24)
[2021-03-07] MEDS: MORPHINE 10 MG/1 ML VIAL IV PRN (10:41)
[2021-03-07] MEDS: SODIUM CHLORIDE 0.45% 1,000 ML IV SCH ×2 (12:03)
[2021-03-07] MEDS ORDERED: hydrALAZINE 20 MG/1 ML VIAL IV ONE (12:20)
[2021-03-07] MEDS ORDERED: hydrALAZINE 25 MG TABLET PO ONE (13:30)
[2021-03-07] MEDS: MEROPENEM 500 MG in SODIUM CHLORIDE 0.9% 100 ML IV SCH ×2 (15:07→22:35)
[2021-03-07 16:48] LABS: ABG Base Excess 4.7 MMOL/L (-2.5-2.5); ABG HCO3 28.6 MMOL/L (20-26); ABG Oxygen Saturation 95.7 % (95-100); ABG PCO2 41.8 MM HG (35-48); ABG PH 7.451 (7.35-7.45); ABG PO2 77.4 MM HG (80-95); ABG TCO2 26.5 MMOL/L (23-27); Glucose Heart Surgery 216 MG/DL (74-106); Hematocrit Heart Surgery 29.8 PERCENT (42-52); Hemoglobin Heart Surgery 9.6 G/DL (14.0-18.0)
[2021-03-07] MEDS: hydrALAZINE 25 MG TABLET PO SCH (22:46)
[2021-03-08] MEDS: MORPHINE 10 MG/1 ML VIAL IV PRN ×2 (01:17→07:26)
[2021-03-08] MEDS: ALBUTEROL/IPRATROPIUM 3 ML NEB RESP TX SCH ×6 (03:30→23:09)
[2021-03-08 04:30] LABS: ABG Base Excess 6.7 MMOL/L (-2.5-2.5); ABG HCO3 30.5 MMOL/L (20-26); ABG Oxygen Saturation 94.9 % (95-100); ABG PCO2 37.8 MM HG (35-48); ABG PH 7.509 (7.35-7.45); ABG PO2 70.8 MM HG (80-95); ABG TCO2 27.5 MMOL/L (23-27)
[2021-03-08 04:38] LABS: Basophils % 0.1 % (0.0-0.8); Hematocrit 27.8 VOL% (42.0-52.0); Hemoglobin 9.1 GM/DL (14.0-18.0); Immature Granulocytes % 1.4 %; Immature Granulocytes Absolute 0.21 #; Lymphocytes # 0.3 10*3/uL (1.4-4.0); Lymphocytes % 2.3 % (21.2-54.2); Mean Corpuscular HGB Conc 32.7 GM/DL (32-36); Mean Corpuscular Volume 90.3 FL (87-102); Mean Platelet Volume 10.4 FL (9.6-12.0); Monocytes % 6.7 % (1.7-12.7); Neutrophils % 89.5 % (38.7-73.9); Platelet Count 193 T/CUMM (130-400); Red Blood Count 3.08 MC/CUMM (3.8-5.5); Red Cell Distribution Width 14.6 % (9.3-17.3); White Blood Count 14.8 T/CUMM (4-12)
[2021-03-08 04:59] LABS: Hypochromia 1+; Lymphocytes 6 % (20-55); Microcytosis 1+; Platelet Estimate Adequate; Segmented Neutrophils 85 % (50-85); Total Cells Counted 100
[2021-03-08 05:02] LABS: Albumin 2.7 G/DL (3.4-5.0); Bilirubin,Direct 0.25 MG/DL (0.0-0.20); Bilirubin,Total 0.6 MG/DL (0.20-1.00); Calcium 8.6 MG/DL (8.5-10.1); Osmolality,Calculated 308.3 MOS/KG (273-304); Potassium 3.7 MMOL/L (3.5-5.1); Total Protein 5.8 G/DL (6.4-8.2)
[2021-03-08] MEDS: methylPREDNISolone SOD SUC 40 MG/1 ML VIAL IV SCH ×2 (05:09→21:24)
[2021-03-08] MEDS: INSULIN REGULAR 100 UNIT/ML SUBCUT SCH ×5 (05:10→21:24)
[2021-03-08] MEDS: POTASSIUM CHLORIDE RIDER 20 MEQ/100 ML PREMIX IV PRN (05:13)
[2021-03-08] MEDS: POTASSIUM CHLORIDE RIDER 10 MEQ/100 ML PREMIX IV PRN (05:45)
[2021-03-08] MEDS: MEROPENEM 500 MG in SODIUM CHLORIDE 0.9% 100 ML IV SCH ×3 (06:20→23:35)
[2021-03-08] MEDS: PANTOPRAZOLE 40 MG VIAL IV SCH (08:42)
[2021-03-08] MEDS: CHLORHEXIDINE 0.12% ORAL RINSE 60 ML BOTTLE SWISH/SPIT SCH ×2 (08:42→21:26)
[2021-03-08] MEDS: ASPIRIN CHEW 81 MG TABLET PO SCH (08:42)
[2021-03-08] MEDS: hydrALAZINE 25 MG TABLET PO SCH (08:42)
[2021-03-08] MEDS ORDERED: amLODIPine 5 MG TABLET PO ONE (10:08)
[2021-03-08] MEDS ORDERED: POTASSIUM CHLORIDE 20 MEQ TABLET PO ONE (11:07)
[2021-03-08] MEDS: ASCORBIC ACID 500 MG TABLET PO SCH ×2 (11:53→21:25)
[2021-03-08] MEDS: SODIUM CHLORIDE 0.45% 1,000 ML IV SCH ×3 (12:17→17:03)
[2021-03-08] MEDS: cloNIDine 0.1 MG TABLET PO SCH (21:25)
[2021-03-09] MEDS: hydrALAZINE 20 MG/1 ML VIAL IV PRN (00:40)
[2021-03-09] MEDS: INSULIN REGULAR 100 UNIT/ML SUBCUT SCH ×6 (00:40→20:54)
[2021-03-09] MEDS: ALBUTEROL/IPRATROPIUM 3 ML NEB RESP TX SCH ×6 (03:18→23:50)
[2021-03-09 04:11] LABS: Basophils % 0.1 % (0.0-0.8); Hematocrit 32.4 VOL% (42.0-52.0); Hemoglobin 10.1 GM/DL (14.0-18.0); Immature Granulocytes % 2.5 %; Immature Granulocytes Absolute 0.52 #; Lymphocytes # 0.3 10*3/uL (1.4-4.0); Lymphocytes % 1.5 % (21.2-54.2); Mean Corpuscular HGB Conc 31.2 GM/DL (32-36); Mean Corpuscular Volume 93.4 FL (87-102); Mean Platelet Volume 10.2 FL (9.6-12.0); Monocytes % 6.3 % (1.7-12.7); Neutrophils % 89.6 % (38.7-73.9); Platelet Count 255 T/CUMM (130-400); Red Blood Count 3.47 MC/CUMM (3.8-5.5); Red Cell Distribution Width 15.1 % (9.3-17.3); White Blood Count 20.7 T/CUMM (4-12)
[2021-03-09 04:27] LABS: Alanine Aminotransferase 65 U/L (16-61); Albumin 3.1 G/DL (3.4-5.0); Alkaline Phosphatase 74 U/L (45-117); Aspartate Amino Transferase 28 U/L (0-37); Blood Urea Nitrogen 80 MG/DL (7-18); Carbon Dioxide 31 MMOL/L (21-32); Estimated Glom Filtration Rate 53 ML/MIN; Glucose 178 MG/DL (74-106); Osmolality,Calculated 304.5 MOS/KG (273-304); Potassium 4.5 MMOL/L (3.5-5.1); Sodium 139 MMOL/L (136-145); Total Protein 6.3 G/DL (6.4-8.2)
[2021-03-09 04:32] LABS: Albumin 3.1 G/DL (3.4-5.0); Bilirubin,Direct 0.41 MG/DL (0.0-0.20); Bilirubin,Indirect 0.6 MG/DL (0.0-1.0); Calcium 8.8 MG/DL (8.5-10.1); Osmolality,Calculated 308.3 MOS/KG (273-304); Potassium 4.5 MMOL/L (3.5-5.1); Total Protein 5.9 G/DL (6.4-8.2)
[2021-03-09 04:36] LABS: Hypochromia 1+; Lymphocytes 1 % (20-55); Microcytosis 1+; Platelet Estimate Adequate; Segmented Neutrophils 90 % (50-85); Total Cells Counted 100
[2021-03-09] MEDS: POTASSIUM CHLORIDE RIDER 10 MEQ/100 ML PREMIX IV PRN (05:22)
[2021-03-09] MEDS: MEROPENEM 500 MG in SODIUM CHLORIDE 0.9% 100 ML IV SCH ×3 (06:02→23:55)
[2021-03-09] MEDS ORDERED: FUROSEMIDE 40 MG/4 ML VIAL IV ONE (07:23)
[2021-03-09] MEDS: amLODIPine 10 MG TABLET PO SCH (08:42)
[2021-03-09] MEDS: ASPIRIN CHEW 81 MG TABLET PO SCH (08:42)
[2021-03-09] MEDS: cloNIDine 0.1 MG TABLET PO SCH ×2 (08:42→20:52)
[2021-03-09] MEDS: PANTOPRAZOLE 40 MG TABLET PO SCH (08:43)
[2021-03-09] MEDS: methylPREDNISolone SOD SUC 40 MG/1 ML VIAL IV SCH ×2 (08:43→20:56)
[2021-03-09] MEDS: CHLORHEXIDINE 0.12% ORAL RINSE 60 ML BOTTLE SWISH/SPIT SCH ×2 (08:48→20:55)
[2021-03-09] MEDS ORDERED: amLODIPine 5 MG TABLET PO SCH (09:00)
[2021-03-09] MEDS ORDERED: MAGNESIUM SULF RIDER 4 GM/100 ML PREMIX IV PRN (11:03)
[2021-03-09] MEDS ORDERED: GLUCAGON 1 MG VIAL IM PRN (11:03)
[2021-03-09] MEDS ORDERED: ZALEPLON 5 MG CAPSULE PO PRN (11:03)
[2021-03-09] MEDS ORDERED: MAGNESIUM HYDROXIDE SUSP 30 ML UDCUP PO PRN (11:03)
[2021-03-09] MEDS ORDERED: SODIUM CHLOR 0.45% KCL 20 MEQ 20 MEQ/1,000 ML BAG IV SCH (11:03)
[2021-03-09] MEDS ORDERED: oxyCODONE/ACETAMINOPHEN 5-325 MG TABLET PO PRN (11:03)
[2021-03-09] MEDS ORDERED: ONDANSETRON 4 MG/2 ML VIAL IV PRN (11:03)
[2021-03-09] MEDS ORDERED: ALUMINUM/MAGNES/SIMETH MAX STR 30 ML UDCUP PO PRN (11:03)
[2021-03-09] MEDS ORDERED: traZODone 50 MG TABLET PO PRN (11:03)
[2021-03-09] MEDS ORDERED: ACETAMINOPHEN 325 MG TABLET PO PRN (11:03)
[2021-03-09] MEDS ORDERED: MAGNESIUM SULF RIDER 2 GM/50 ML PREMIX IV PRN (11:03)
[2021-03-09] MEDS ORDERED: DEXTROSE 50% 25 GM/50 ML SYRINGE IV PRN (11:10)
[2021-03-09] MEDS: ASCORBIC ACID 500 MG TABLET PO SCH ×2 (12:03→20:52)
[2021-03-09] MEDS ORDERED: ENOXAPARIN 40 MG/0.4 ML SYRINGE SUBCUT ONE (14:46)
[2021-03-09] MEDS: ROSUVASTATIN 20 MG TABLET PO SCH (20:52)
[2021-03-09] MEDS: MEMANTINE 10 MG TABLET PO SCH (20:52)
[2021-03-09] MEDS: DONEPEZIL 10 MG TABLET PO SCH (20:52)
[2021-03-10] MEDS: INSULIN REGULAR 100 UNIT/ML SUBCUT SCH ×6 (00:07→21:30)
[2021-03-10] MEDS: ALBUTEROL/IPRATROPIUM 3 ML NEB RESP TX SCH ×6 (04:10→23:55)
[2021-03-10 05:14] LABS: Basophils % 0.2 % (0.0-0.8); Hematocrit 32.3 VOL% (42.0-52.0); Hemoglobin 10.1 GM/DL (14.0-18.0); Immature Granulocytes % 1.6 %; Immature Granulocytes Absolute 0.33 #; Lymphocytes # 0.4 10*3/uL (1.4-4.0); Lymphocytes % 1.7 % (21.2-54.2); Mean Corpuscular HGB Conc 31.3 GM/DL (32-36); Mean Platelet Volume 9.8 FL (9.6-12.0); Monocytes % 7.6 % (1.7-12.7); Neutrophils % 88.9 % (38.7-73.9); Platelet Count 237 T/CUMM (130-400); Red Cell Distribution Width 15.1 % (9.3-17.3); White Blood Count 20.8 T/CUMM (4-12)
[2021-03-10 05:36] LABS: Alanine Aminotransferase 70 U/L (16-61); Albumin 2.9 G/DL (3.4-5.0); Alkaline Phosphatase 77 U/L (45-117); Aspartate Amino Transferase 22 U/L (0-37); Bilirubin,Indirect 0.8 MG/DL (0.0-1.0); Blood Urea Nitrogen 77 MG/DL (7-18); Calcium 8.8 MG/DL (8.5-10.1); Carbon Dioxide 33 MMOL/L (21-32); Estimated Glom Filtration Rate 63 ML/MIN; Glucose 169 MG/DL (74-106); Osmolality,Calculated 316.6 MOS/KG (273-304); Potassium 4.1 MMOL/L (3.5-5.1); Sodium 146 MMOL/L (136-145)
[2021-03-10 05:42] LABS: Hypochromia Slight; Lymphocytes 3 % (20-55); Microcytosis Slight; Ovalocytes Slight; Platelet Estimate Adequate; Segmented Neutrophils 92 % (50-85); Total Cells Counted 100
[2021-03-10] MEDS ORDERED: FUROSEMIDE 40 MG/4 ML VIAL IV ONE (06:00)
[2021-03-10] MEDS: POTASSIUM CHLORIDE 20 MEQ TABLET PO PRN (06:01)
[2021-03-10] MEDS: MEROPENEM 500 MG in SODIUM CHLORIDE 0.9% 100 ML IV SCH ×3 (06:06→23:15)
[2021-03-10] MEDS: DOCUSATE SODIUM 100 MG CAPSULE PO SCH (08:04)
[2021-03-10] MEDS: TAMSULOSIN 0.4 MG CAPSULE PO SCH (08:04)
[2021-03-10] MEDS: FERROUS SULFATE 325 MG TABLET PO SCH (08:04)
[2021-03-10] MEDS: PANTOPRAZOLE 40 MG TABLET PO SCH (08:04)
[2021-03-10] MEDS: ASPIRIN CHEW 81 MG TABLET PO SCH (08:04)
[2021-03-10] MEDS: ASCORBIC ACID 500 MG TABLET PO SCH ×2 (08:04→21:07)
[2021-03-10] MEDS: MEMANTINE 10 MG TABLET PO SCH ×2 (08:05→21:07)
[2021-03-10] MEDS: amLODIPine 10 MG TABLET PO SCH (08:05)
[2021-03-10] MEDS: methylPREDNISolone SOD SUC 40 MG/1 ML VIAL IV SCH ×2 (08:05→21:10)
[2021-03-10] MEDS: SERTRALINE 100 MG TABLET PO SCH (08:05)
[2021-03-10] MEDS: CHLORHEXIDINE 0.12% ORAL RINSE 60 ML BOTTLE SWISH/SPIT SCH ×2 (08:53→21:08)
[2021-03-10] MEDS: hydrALAZINE 20 MG/1 ML VIAL IV PRN (09:41)
[2021-03-10] MEDS ORDERED: cloNIDine 0.1 MG TABLET PO PRN (09:55)
[2021-03-10] MEDS ORDERED: OLMESARTAN 5 MG TABLET PO SCH (10:00)
[2021-03-10] MEDS: DONEPEZIL 10 MG TABLET PO SCH (21:07)
[2021-03-10] MEDS: ROSUVASTATIN 20 MG TABLET PO SCH (21:08)
[2021-03-11] MEDS ORDERED: FUROSEMIDE 40 MG/4 ML VIAL IV ONE (02:41)
[2021-03-11] MEDS: ALBUTEROL/IPRATROPIUM 3 ML NEB RESP TX SCH ×5 (03:40→20:07)
[2021-03-11 05:21] LABS: Basophils % 0.2 % (0.0-0.8); Hematocrit 32.6 VOL% (42.0-52.0); Hemoglobin 10.2 GM/DL (14.0-18.0); Immature Granulocytes % 1.4 %; Immature Granulocytes Absolute 0.38 #; Lymphocytes # 0.3 10*3/uL (1.4-4.0); Lymphocytes % 1.2 % (21.2-54.2); Mean Corpuscular HGB Conc 31.3 GM/DL (32-36); Mean Platelet Volume 9.6 FL (9.6-12.0); Monocytes % 4.3 % (1.7-12.7); Neutrophils % 92.9 % (38.7-73.9); Platelet Count 267 T/CUMM (130-400); Red Blood Count 3.43 MC/CUMM (3.8-5.5); Red Cell Distribution Width 14.7 % (9.3-17.3); White Blood Count 26.5 T/CUMM (4-12)
[2021-03-11 05:36] LABS: Calcium 8.8 MG/DL (8.5-10.1); Osmolality,Calculated 310.1 MOS/KG (273-304); Potassium 4.5 MMOL/L (3.5-5.1)
[2021-03-11 05:42] LABS: Alanine Aminotransferase 63 U/L (16-61); Alkaline Phosphatase 82 U/L (45-117); Aspartate Amino Transferase 20 U/L (0-37); Bilirubin,Indirect 1.5 MG/DL (0.0-1.0); Blood Urea Nitrogen 73 MG/DL (7-18); Calcium 8.9 MG/DL (8.5-10.1); Carbon Dioxide 31 MMOL/L (21-32); Estimated Glom Filtration Rate 69 ML/MIN; Glucose 232 MG/DL (74-106); Osmolality,Calculated 311.1 MOS/KG (273-304); Potassium 4.4 MMOL/L (3.5-5.1); Sodium 142 MMOL/L (136-145); Total Protein 6.2 G/DL (6.4-8.2)
[2021-03-11] MEDS: INSULIN REGULAR 100 UNIT/ML SUBCUT SCH ×6 (05:49→22:14)
[2021-03-11 05:56] LABS: Band Neutrophils 1 % (0-10); Lymphocytes 3 % (20-55); Segmented Neutrophils 92 % (50-85); Total Cells Counted 100
[2021-03-11 05:57] LABS: Platelet Estimate Normal
[2021-03-11] MEDS ORDERED: methylPREDNISolone SOD SUC 40 MG/1 ML VIAL IV SCH (09:00)
[2021-03-11] MEDS: MEROPENEM 500 MG in SODIUM CHLORIDE 0.9% 100 ML IV SCH ×2 (09:07→15:19)
[2021-03-11] MEDS: ASPIRIN CHEW 81 MG TABLET PO SCH (09:09)
[2021-03-11] MEDS: DOCUSATE SODIUM 100 MG CAPSULE PO SCH (09:09)
[2021-03-11] MEDS: FERROUS SULFATE 325 MG TABLET PO SCH (09:09)
[2021-03-11] MEDS: SERTRALINE 100 MG TABLET PO SCH (09:09)
[2021-03-11] MEDS: ASCORBIC ACID 500 MG TABLET PO SCH ×2 (09:09→21:32)
[2021-03-11] MEDS: PANTOPRAZOLE 40 MG TABLET PO SCH (09:10)
[2021-03-11] MEDS: MEMANTINE 10 MG TABLET PO SCH ×2 (09:10→21:32)
[2021-03-11] MEDS: CHLORHEXIDINE 0.12% ORAL RINSE 60 ML BOTTLE SWISH/SPIT SCH ×2 (09:11→22:14)
[2021-03-11] MEDS: TAMSULOSIN 0.4 MG CAPSULE PO SCH (09:35)
[2021-03-11] MEDS: ENOXAPARIN 100 MG/ML SYRINGE SUBCUT SCH ×2 (09:36→21:32)
[2021-03-11] MEDS: OLMESARTAN 5 MG TABLET PO SCH (09:36)
[2021-03-11] MEDS: FUROSEMIDE 40 MG/4 ML VIAL IV SCH ×2 (09:36→17:57)
[2021-03-11 10:20] LABS: Bilirubin,Urine Negative (Negative); Blood, Urine Moderate mg/dL (Negative); Glucose,Urine (UA) Negative (Negative); Ketones,Urine Negative (Negative); Mucus,Urine Occasional /LPF (Occasional); Nitrite,Urine Negative (Negative); Protein,Urine Negative; RBC,Urine 15 /HPF (0-4); Uric Acid Crystals,Urine Moderate /HPF (<1); Urine Appearance CLOUDY (Clear); Urine Color Yellow (Yellow); Urine Urobilinogen < 2.0 EU/DL (0.2-1.0)
[2021-03-11] MEDS: DONEPEZIL 10 MG TABLET PO SCH (21:32)
[2021-03-11] MEDS: ROSUVASTATIN 20 MG TABLET PO SCH (21:32)
[2021-03-12] MEDS: ALBUTEROL/IPRATROPIUM 3 ML NEB RESP TX SCH ×6 (00:20→21:40)
[2021-03-12] MEDS: INSULIN REGULAR 100 UNIT/ML SUBCUT SCH ×6 (03:41→22:27)
[2021-03-12] MEDS: MEROPENEM 500 MG in SODIUM CHLORIDE 0.9% 100 ML IV SCH ×4 (03:41→23:14)
[2021-03-12 06:32] LABS: Osmolality,Calculated 306.1 MOS/KG (273-304); Potassium 3.7 MMOL/L (3.5-5.1)
[2021-03-12 07:36] LABS: Basophils # 0.1 10*3/uL (0.0-0.2); Basophils % 0.3 % (0.0-0.8); Eosinophils % 0.1 % (0.00-10.9); Hematocrit 37.8 VOL% (42.0-52.0); Hemoglobin 11.6 GM/DL (14.0-18.0); Immature Granulocytes % 1.4 %; Immature Granulocytes Absolute 0.42 #; Lymphocytes # 0.9 10*3/uL (1.4-4.0); Mean Corpuscular HGB Conc 30.7 GM/DL (32-36); Mean Corpuscular Volume 98.4 FL (87-102); Mean Platelet Volume 10.6 FL (9.6-12.0); Monocytes % 8.6 % (1.7-12.7); Neutrophils % 86.6 % (38.7-73.9); Platelet Count 238 T/CUMM (130-400); Red Blood Count 3.84 MC/CUMM (3.8-5.5); Red Cell Distribution Width 14.6 % (9.3-17.3)
[2021-03-12 07:48] LABS: Band Neutrophils 1 % (0-10); Hypochromia Slight; Lymphocytes 4 % (20-55); Microcytosis Slight; Platelet Estimate Adequate; Segmented Neutrophils 90 % (50-85); Total Cells Counted 100
[2021-03-12] MEDS: amLODIPine 10 MG TABLET PO SCH (08:35)
[2021-03-12] MEDS: OLMESARTAN 5 MG TABLET PO SCH (08:48)
[2021-03-12] MEDS: TAMSULOSIN 0.4 MG CAPSULE PO SCH (08:49)
[2021-03-12] MEDS: ASCORBIC ACID 500 MG TABLET PO SCH ×2 (08:50→21:29)
[2021-03-12] MEDS: FUROSEMIDE 40 MG/4 ML VIAL IV SCH ×2 (08:51→16:49)
[2021-03-12] MEDS: FERROUS SULFATE 325 MG TABLET PO SCH (08:56)
[2021-03-12] MEDS: DOCUSATE SODIUM 100 MG CAPSULE PO SCH (08:56)
[2021-03-12] MEDS: PANTOPRAZOLE 40 MG TABLET PO SCH (08:57)
[2021-03-12] MEDS: SERTRALINE 100 MG TABLET PO SCH (08:58)
[2021-03-12] MEDS: ASPIRIN CHEW 81 MG TABLET PO SCH (08:58)
[2021-03-12] MEDS: MEMANTINE 10 MG TABLET PO SCH ×2 (08:58→21:29)
[2021-03-12] MEDS: POTASSIUM CHLORIDE 20 MEQ TABLET PO PRN (08:59)
[2021-03-12] MEDS: methylPREDNISolone SOD SUC 40 MG/1 ML VIAL IV SCH (09:01)
[2021-03-12] MEDS: ENOXAPARIN 100 MG/ML SYRINGE SUBCUT SCH ×2 (09:02→21:29)
[2021-03-12] MEDS: CHLORHEXIDINE 0.12% ORAL RINSE 60 ML BOTTLE SWISH/SPIT SCH ×2 (09:08→22:27)
[2021-03-12] MEDS: DONEPEZIL 10 MG TABLET PO SCH (21:29)
[2021-03-12] MEDS: ROSUVASTATIN 20 MG TABLET PO SCH (21:29)
[2021-03-13] MEDS: INSULIN REGULAR 100 UNIT/ML SUBCUT SCH ×7 (00:27→23:36)
[2021-03-13] MEDS: ALBUTEROL/IPRATROPIUM 3 ML NEB RESP TX SCH ×7 (01:20→23:57)
[2021-03-13 04:44] LABS: Basophils % 0.1 % (0.0-0.8); Eosinophils % 0.1 % (0.00-10.9); Hematocrit 31.5 VOL% (42.0-52.0); Hemoglobin 9.8 GM/DL (14.0-18.0); Immature Granulocytes % 1.1 %; Lymphocytes # 0.6 10*3/uL (1.4-4.0); Lymphocytes % 2.1 % (21.2-54.2); Mean Corpuscular HGB Conc 31.1 GM/DL (32-36); Mean Corpuscular Volume 94.3 FL (87-102); Mean Platelet Volume 10.1 FL (9.6-12.0); Monocytes % 6.5 % (1.7-12.7); Neutrophils % 90.1 % (38.7-73.9); Platelet Count 277 T/CUMM (130-400); Red Blood Count 3.34 MC/CUMM (3.8-5.5); Red Cell Distribution Width 14.4 % (9.3-17.3); White Blood Count 26.8 T/CUMM (4-12)
[2021-03-13 05:03] LABS: Alanine Aminotransferase 48 U/L (16-61); Albumin 3.1 G/DL (3.4-5.0); Alkaline Phosphatase 82 U/L (45-117); Aspartate Amino Transferase 20 U/L (0-37); Bilirubin,Indirect 0.8 MG/DL (0.0-1.0); Blood Urea Nitrogen 65 MG/DL (7-18); Calcium 8.5 MG/DL (8.5-10.1); Carbon Dioxide 34 MMOL/L (21-32); Estimated Glom Filtration Rate 67 ML/MIN; Glucose 171 MG/DL (74-106); Osmolality,Calculated 308.8 MOS/KG (273-304); Potassium 3.5 MMOL/L (3.5-5.1); Sodium 144 MMOL/L (136-145); Total Protein 6.3 G/DL (6.4-8.2)
[2021-03-13 05:31] LABS: Calcium 8.8 MG/DL (8.5-10.1); Osmolality,Calculated 305.1 MOS/KG (273-304); Potassium 3.4 MMOL/L (3.5-5.1)
[2021-03-13 05:36] LABS: Hypochromia 1+; Lymphocytes 2 % (20-55); Microcytosis 1+; Ovalocytes Slight; Platelet Estimate Adequate; Segmented Neutrophils 92 % (50-85); Total Cells Counted 100
[2021-03-13] MEDS: MEROPENEM 500 MG in SODIUM CHLORIDE 0.9% 100 ML IV SCH ×3 (06:43→23:35)
[2021-03-13] MEDS: FERROUS SULFATE 325 MG TABLET PO SCH (09:38)
[2021-03-13] MEDS: PANTOPRAZOLE 40 MG TABLET PO SCH (09:38)
[2021-03-13] MEDS: SERTRALINE 100 MG TABLET PO SCH (09:38)
[2021-03-13] MEDS: OLMESARTAN 5 MG TABLET PO SCH (09:39)
[2021-03-13] MEDS: MEMANTINE 10 MG TABLET PO SCH ×2 (09:39→21:14)
[2021-03-13] MEDS: TAMSULOSIN 0.4 MG CAPSULE PO SCH (09:39)
[2021-03-13] MEDS: amLODIPine 10 MG TABLET PO SCH (09:39)
[2021-03-13] MEDS: DOCUSATE SODIUM 100 MG CAPSULE PO SCH (09:39)
[2021-03-13] MEDS: ASCORBIC ACID 500 MG TABLET PO SCH ×2 (09:39→21:14)
[2021-03-13] MEDS: ASPIRIN CHEW 81 MG TABLET PO SCH (09:44)
[2021-03-13] MEDS: methylPREDNISolone SOD SUC 40 MG/1 ML VIAL IV SCH (09:46)
[2021-03-13] MEDS: ENOXAPARIN 100 MG/ML SYRINGE SUBCUT SCH ×2 (09:49→21:15)
[2021-03-13] MEDS: FUROSEMIDE 40 MG/4 ML VIAL IV SCH ×2 (09:49→15:56)
[2021-03-13] MEDS: CHLORHEXIDINE 0.12% ORAL RINSE 60 ML BOTTLE SWISH/SPIT SCH ×2 (09:49→21:46)
[2021-03-13] MEDS: POTASSIUM CHLORIDE 20 MEQ TABLET PO PRN ×2 (12:26→14:05)
[2021-03-13] MEDS: DONEPEZIL 10 MG TABLET PO SCH (21:14)
[2021-03-13] MEDS: ROSUVASTATIN 20 MG TABLET PO SCH (21:14)
[2021-03-14] MEDS: ALBUTEROL/IPRATROPIUM 3 ML NEB RESP TX SCH ×5 (03:23→23:24)
[2021-03-14 03:56] LABS: Eosinophils % 0.1 % (0.00-10.9); Hematocrit 28.6 VOL% (42.0-52.0); Hemoglobin 8.9 GM/DL (14.0-18.0); Immature Granulocytes % 1.1 %; Immature Granulocytes Absolute 0.25 #; Lymphocytes # 0.6 10*3/uL (1.4-4.0); Lymphocytes % 2.4 % (21.2-54.2); Mean Corpuscular HGB Conc 31.1 GM/DL (32-36); Mean Corpuscular Volume 93.8 FL (87-102); Mean Platelet Volume 10.4 FL (9.6-12.0); Monocytes % 6.5 % (1.7-12.7); Neutrophils % 89.9 % (38.7-73.9); Platelet Count 239 T/CUMM (130-400); Red Blood Count 3.05 MC/CUMM (3.8-5.5); Red Cell Distribution Width 14.3 % (9.3-17.3); White Blood Count 23.3 T/CUMM (4-12)
[2021-03-14 04:11] LABS: Alanine Aminotransferase 43 U/L (16-61); Alkaline Phosphatase 78 U/L (45-117); Aspartate Amino Transferase 18 U/L (0-37); Bilirubin,Indirect 0.8 MG/DL (0.0-1.0); Blood Urea Nitrogen 71 MG/DL (7-18); Calcium 8.4 MG/DL (8.5-10.1); Carbon Dioxide 34 MMOL/L (21-32); Estimated Glom Filtration Rate 61 ML/MIN; Glucose 162 MG/DL (74-106); Osmolality,Calculated 310.8 MOS/KG (273-304); Potassium 3.6 MMOL/L (3.5-5.1); Sodium 144 MMOL/L (136-145); Total Protein 6.1 G/DL (6.4-8.2)
[2021-03-14 04:21] LABS: Hypochromia 1+; Lymphocytes 2 % (20-55); Microcytosis 1+; Platelet Estimate Adequate; Segmented Neutrophils 92 % (50-85); Total Cells Counted 100
[2021-03-14] MEDS: INSULIN REGULAR 100 UNIT/ML SUBCUT SCH ×5 (04:40→22:38)
[2021-03-14] MEDS: MEROPENEM 500 MG in SODIUM CHLORIDE 0.9% 100 ML IV SCH ×3 (07:06→21:42)
[2021-03-14] MEDS: OLMESARTAN 5 MG TABLET PO SCH (08:18)
[2021-03-14] MEDS: ASPIRIN CHEW 81 MG TABLET PO SCH (08:18)
[2021-03-14] MEDS: FERROUS SULFATE 325 MG TABLET PO SCH (08:19)
[2021-03-14] MEDS: SERTRALINE 100 MG TABLET PO SCH (08:19)
[2021-03-14] MEDS: amLODIPine 10 MG TABLET PO SCH (08:19)
[2021-03-14] MEDS: DOCUSATE SODIUM 100 MG CAPSULE PO SCH (08:19)
[2021-03-14] MEDS: MEMANTINE 10 MG TABLET PO SCH (08:19)
[2021-03-14] MEDS: ENOXAPARIN 100 MG/ML SYRINGE SUBCUT SCH (08:19)
[2021-03-14] MEDS: ASCORBIC ACID 500 MG TABLET PO SCH (08:19)
[2021-03-14] MEDS: PANTOPRAZOLE 40 MG TABLET PO SCH (08:19)
[2021-03-14] MEDS: methylPREDNISolone SOD SUC 40 MG/1 ML VIAL IV SCH ×2 (08:20→15:26)
[2021-03-14] MEDS: FUROSEMIDE 40 MG/4 ML VIAL IV SCH (08:20)
[2021-03-14] MEDS: TAMSULOSIN 0.4 MG CAPSULE PO SCH (08:20)
[2021-03-14] MEDS: CHLORHEXIDINE 0.12% ORAL RINSE 60 ML BOTTLE SWISH/SPIT SCH (08:21)
[2021-03-14] MEDS ORDERED: PHENYLEPHRINE DRIP 40 MG/250 ML PREMIX IV ONE (11:33)
[2021-03-14] MEDS: PHENYLEPHRINE DRIP 40 MG/250 ML PREMIX IV PRN ×5 (11:35→22:42)
[2021-03-14] MEDS ORDERED: PHENYLEPHRINE 1 MG/10 ML SYRINGE IV ONE (11:41)
[2021-03-14] MEDS ORDERED: propofoL 200 MG/20 ML VIAL IV ONE (11:41)
[2021-03-14] MEDS ORDERED: SUCCINYLCHOLINE 200 MG/10 ML VIAL ONE (11:41)
[2021-03-14 12:04] LABS: Bacteria,Urine Occasional /HPF (Few); Bilirubin,Urine Negative (Negative); Blood, Urine Negative (Negative); Glucose,Urine (UA) Negative (Negative); Hyaline Casts,Urine 13 /LPF (0-3); Ketones,Urine 5 mg/dL (Negative); Mucus,Urine Occasional /LPF (Occasional); Nitrite,Urine Negative (Negative); Protein,Urine Negative; RBC,Urine 2 /HPF (0-4); Squamous Epithelial Cell,Urine Occasional /HPF (0-10); Urine Appearance CLEAR (Clear); Urine Color Yellow (Yellow); Urine Specific Gravity 1.015 (1.001-1.035); Urine Urobilinogen < 2.0 EU/DL (<2.0)
[2021-03-14] MEDS ORDERED: MIDAZOLAM 100 MG in SODIUM CHLORIDE 0.9% 80 ML IV PRN (12:27)
[2021-03-14 12:30] LABS: ABG Base Excess 3.6 MMOL/L (-2.5-2.5); ABG HCO3 27.6 MMOL/L (20-26); ABG Oxygen Saturation 99.7 % (95-100); ABG PCO2 55.7 MM HG (35-48); ABG PH 7.343 (7.35-7.45); ABG TCO2 28.1 MMOL/L (23-27); Glucose Heart Surgery 285 MG/DL (74-106); Hematocrit Heart Surgery 27.5 PERCENT (42-52); Hemoglobin Heart Surgery 8.9 G/DL (14.0-18.0); Potassium Heart/CVR 4.6 MMOL/L (3.5-5.1)
[2021-03-14] MEDS: ALBUMIN 5% 12.5 GM/250 ML VIAL IV SCH ×2 (13:20→13:55)
[2021-03-14] MEDS ORDERED: EPINEPHrine 1 MG/ML VIAL ONE (14:23)
[2021-03-14] MEDS ORDERED: ALBUMIN 5% 12.5 GM/250 ML VIAL IV ONE (15:38)
[2021-03-14] MEDS ORDERED: DOPamine 800 MG/250 ML PREMIX IV PRN (15:38)
[2021-03-14] MEDS ORDERED: DOPamine 800 MG/250 ML PREMIX IV ONE (15:41)
[2021-03-14 15:47] LABS: ABG Base Excess -1.5 MMOL/L (-2.5-2.5); ABG HCO3 23.2 MMOL/L (20-26); ABG Oxygen Saturation 99.3 % (95-100); ABG PH 7.313 (7.35-7.45); ABG TCO2 23.4 MMOL/L (23-27); Glucose Heart Surgery 233 MG/DL (74-106); Potassium Heart/CVR 4.8 MMOL/L (3.5-5.1)
[2021-03-14] MEDS ORDERED: SODIUM BICARBONATE 50 MEQ/50 ML VIAL IV ONE ×4 (16:23→22:43)
[2021-03-14] MEDS ORDERED: CALCIUM CHLORIDE 1,000 MG/10 ML SYRINGE IV ONE ×2 (16:39→19:30)
[2021-03-14] MEDS ORDERED: DOBUTamine 500 MG/250 ML PREMIX IV ONE (17:02)
[2021-03-14 17:17] LABS: ABG Base Excess 1.5 MMOL/L (-2.5-2.5); ABG HCO3 25.8 MMOL/L (20-26); ABG Oxygen Saturation 94.6 % (95-100); ABG PCO2 67.9 MM HG (35-48); ABG PO2 88.9 MM HG (80-95); ABG TCO2 28.4 MMOL/L (23-27); Glucose Heart Surgery 187 MG/DL (74-106); Hematocrit Heart Surgery 23.3 PERCENT (42-52); Hemoglobin Heart Surgery 7.5 G/DL (14.0-18.0); Potassium Heart/CVR 5.6 MMOL/L (3.5-5.1)
[2021-03-14] MEDS: SODIUM BICARB INJ 150 MEQ in DEXTROSE 5% 1,000 ML IV SCH ×2 (17:22→23:07)
[2021-03-14] MEDS ORDERED: NOREPINEPHRINE 8 MG in SODIUM CHLORIDE 0.9% 242 ML IV SCH (17:31)
[2021-03-14] MEDS ORDERED: SODIUM CHLORIDE 0.9% 1,000 ML IV PRN (17:32)
[2021-03-14] MEDS: DOBUTamine 500 MG/250 ML PREMIX IV SCH (17:35)
[2021-03-14 17:44] LABS: Basophils % 0.1 % (0.0-0.8); Hematocrit 22.9 VOL% (42.0-52.0); Immature Granulocytes % 6.7 %; Immature Granulocytes Absolute 1.15 #; Lymphocytes # 0.4 10*3/uL (1.4-4.0); Lymphocytes % 2.4 % (21.2-54.2); Mean Corpuscular HGB Conc 30.6 GM/DL (32-36); Mean Platelet Volume 10.6 FL (9.6-12.0); Monocytes % 2.6 % (1.7-12.7); Neutrophils % 88.2 % (38.7-73.9); Platelet Count 192 T/CUMM (130-400); Red Cell Distribution Width 14.6 % (9.3-17.3); White Blood Count 17.1 T/CUMM (4-12)
[2021-03-14 17:45] LABS: Red Blood Count 2.36 MC/CUMM (3.8-5.5)
[2021-03-14 18:11] LABS: Band Neutrophils 2 % (0-10); Lymphocytes 2 % (20-55); Metamyelocytes 3 %; Nucleated Red Blood Cells 1 (0-5); Segmented Neutrophils 93 % (50-85); Total Cells Counted 100
[2021-03-14 18:12] LABS: Elliptocytes 1+; Platelet Estimate Adequate; Poikilocytosis 1+
[2021-03-14 18:13] LABS: Polychromasia Slight
[2021-03-14 18:34] LABS: Albumin 2.5 G/DL (3.4-5.0); Bilirubin,Total 2.4 MG/DL (0.20-1.00); Calcium 8.6 MG/DL (8.5-10.1); Osmolality,Calculated 316.6 MOS/KG (273-304); Potassium 4.9 MMOL/L (3.5-5.1); Total Protein 4.8 G/DL (6.4-8.2)
[2021-03-14] MEDS ORDERED: LIDOCAINE 1% 20 ML VIAL ONE (18:37)
[2021-03-14] MEDS ORDERED: AMIODARONE 150 MG/3 ML VIAL ONE (18:37)
[2021-03-14] MEDS ORDERED: LIDOCAINE 1%/EPI INJ 20 ML VIAL ONE (18:37)
[2021-03-14] MEDS ORDERED: NOREPINEPHRINE 4 MG/4 ML VIAL IV ONE (19:04)
[2021-03-14] MEDS ORDERED: ATROPINE 1 MG/10 ML SYRINGE ONE (19:30)
[2021-03-14] MEDS ORDERED: SODIUM BICARBONATE 50 MEQ/50 ML SYRINGE IV ONE (19:30)
[2021-03-14] MEDS ORDERED: EPINEPHrine 1 MG/10 ML SYRINGE ONE (19:30)
[2021-03-14 19:41] VITALS: BP 78/41
[2021-03-14] MEDS: NOREPINEPHRINE 16 MG in SODIUM CHLORIDE 0.9% 234 ML IV SCH ×2 (19:46→23:02)
[2021-03-14 20:06] LABS: ABG Base Excess -5.6 MMOL/L (-2.5-2.5); ABG HCO3 19.7 MMOL/L (20-26); ABG Oxygen Saturation 94.9 % (95-100); ABG PCO2 43.3 MM HG (35-48); ABG PH 7.288 (7.35-7.45); ABG PO2 86.1 MM HG (80-95); ABG TCO2 19.6 MMOL/L (23-27); Glucose Heart Surgery 223 MG/DL (74-106); Hemoglobin Heart Surgery 7.7 G/DL (14.0-18.0); Potassium Heart/CVR 3.9 MMOL/L (3.5-5.1)
[2021-03-14] MEDS ORDERED: FUROSEMIDE 100 MG/10 ML VIAL IV ONE (20:21)
[2021-03-14] MEDS ORDERED: AMIODARONE INJ 450 MG in DEXTROSE 5% 241 ML IV SCH (21:00)
[2021-03-14] MEDS ORDERED: LINEZOLID INJ 600 MG/300 ML PREMIX IV SCH (21:00)
[2021-03-14] MEDS: FUROSEMIDE INJ 100 MG in SODIUM CHLORIDE 0.9% 90 ML IV SCH (22:03)
[2021-03-14 22:12] LABS: ABG Base Excess -4.2 MMOL/L (-2.5-2.5); ABG HCO3 20.9 MMOL/L (20-26); ABG Oxygen Saturation 92.9 % (95-100); ABG PCO2 39.5 MM HG (35-48); ABG PH 7.338 (7.35-7.45); ABG PO2 71.7 MM HG (80-95); ABG TCO2 19.7 MMOL/L (23-27); Glucose Heart Surgery 261 MG/DL (74-106); Potassium Heart/CVR 4.1 MMOL/L (3.5-5.1)
[2021-03-14] MEDS ORDERED: SODIUM BICARBONATE 50 MEQ/50 ML VIAL IV PRN ×2 (23:12→23:18)
[2021-03-15 00:22] LABS: ABG Base Excess -1.9 MMOL/L (-2.5-2.5); ABG HCO3 20.9 MMOL/L (20-26); ABG PCO2 28.7 MM HG (35-48); ABG PO2 65.2 MM HG (80-95); ABG TCO2 21.8 MMOL/L (23-27); Glucose Heart Surgery 309 MG/DL (74-106); Hemoglobin Heart Surgery 9.6 G/DL (14.0-18.0); Potassium Heart/CVR 4.2 MMOL/L (3.5-5.1)
[2021-03-15] MEDS: INSULIN REGULAR 100 UNIT/ML SUBCUT SCH ×2 (00:38→04:18)
[2021-03-15] MEDS: methylPREDNISolone SOD SUC 40 MG/1 ML VIAL IV SCH (01:03)
[2021-03-15] MEDS: PHENYLEPHRINE DRIP 40 MG/250 ML PREMIX IV PRN ×2 (02:05→04:59)
[2021-03-15] MEDS: DOBUTamine 500 MG/250 ML PREMIX IV SCH (02:06)
[2021-03-15] MEDS: NOREPINEPHRINE 16 MG in SODIUM CHLORIDE 0.9% 234 ML IV SCH ×2 (02:09→05:18)
[2021-03-15] MEDS: FUROSEMIDE INJ 100 MG in SODIUM CHLORIDE 0.9% 90 ML IV SCH (02:40)
[2021-03-15] MEDS: DONEPEZIL 10 MG TABLET PO SCH (02:57)
[2021-03-15] MEDS: MEMANTINE 10 MG TABLET PO SCH (02:57)
[2021-03-15] MEDS: ASCORBIC ACID 500 MG TABLET PO SCH (02:58)
[2021-03-15] MEDS: CHLORHEXIDINE 0.12% ORAL RINSE 60 ML BOTTLE SWISH/SPIT SCH (02:58)
[2021-03-15] MEDS: ALBUTEROL/IPRATROPIUM 3 ML NEB RESP TX SCH (03:28)
[2021-03-15 03:56] LABS: ABG Base Excess -0.8 MMOL/L (-2.5-2.5); ABG HCO3 23.6 MMOL/L (20-26); ABG Oxygen Saturation 86.2 % (95-100); ABG PCO2 32.5 MM HG (35-48); ABG PH 7.451 (7.35-7.45); ABG PO2 55.5 MM HG (80-95); ABG TCO2 20.8 MMOL/L (23-27)
[2021-03-15 04:09] LABS: Basophils # 0.1 10*3/uL (0.0-0.2); Basophils % 0.2 % (0.0-0.8); Hematocrit 28.2 VOL% (42.0-52.0); Immature Granulocytes % 2.2 %; Immature Granulocytes Absolute 1.11 #; Lymphocytes # 0.3 10*3/uL (1.4-4.0); Lymphocytes % 0.6 % (21.2-54.2); Mean Corpuscular HGB Conc 32.3 GM/DL (32-36); Mean Corpuscular Volume 91.9 FL (87-102); Mean Platelet Volume 11.8 FL (9.6-12.0); Monocytes % 2.6 % (1.7-12.7); Neutrophils % 94.4 % (38.7-73.9); Platelet Count 171 T/CUMM (130-400); Red Cell Distribution Width 15.3 % (9.3-17.3)
[2021-03-15 04:13] LABS: Hemoglobin 9.1 GM/DL (14.0-18.0); Red Blood Count 3.07 MC/CUMM (3.8-5.5); White Blood Count 50.1 T/CUMM (4-12)
[2021-03-15 04:20] LABS: Calcium 8.4 MG/DL (8.5-10.1); Osmolality,Calculated 326.6 MOS/KG (273-304); Potassium 4.2 MMOL/L (3.5-5.1)
[2021-03-15 04:28] LABS: Band Neutrophils 1 % (0-10); Hypochromia Slight; Microcytosis Slight; Platelet Estimate Adequate; Segmented Neutrophils 96 % (50-85); Total Cells Counted 100
[2021-03-15 04:46] LABS: ABG Base Excess -1.1 MMOL/L (-2.5-2.5); ABG HCO3 23.3 MMOL/L (20-26); ABG Oxygen Saturation 86.8 % (95-100); ABG PCO2 35.5 MM HG (35-48); ABG PH 7.419 (7.35-7.45); ABG PO2 58.3 MM HG (80-95); ABG TCO2 21.2 MMOL/L (23-27); Glucose Heart Surgery 322 MG/DL (74-106); Hematocrit Heart Surgery 28.4 PERCENT (42-52); Hemoglobin Heart Surgery 9.2 G/DL (14.0-18.0); Potassium Heart/CVR 4.3 MMOL/L (3.5-5.1)
[2021-03-15] MEDS: SODIUM BICARB INJ 150 MEQ in DEXTROSE 5% 1,000 ML IV SCH (04:52)
[2021-03-15] MEDS ORDERED: CALCIUM CHLORIDE 1,000 MG/10 ML SYRINGE IV ONE (05:22)
[2021-03-15] MEDS ORDERED: EPINEPHrine 1 MG/10 ML SYRINGE ONE (05:22)
[2021-03-15] MEDS ORDERED: AMIODARONE INJ 450 MG in DEXTROSE 5% 241 ML IV SCH (05:30)
[2021-03-15] MEDS ORDERED: ceFAZolin 1,000 MG VIAL IRRIG ONE (08:30)
[2021-03-15] MEDS ORDERED: APIXABAN 5 MG TABLET PO SCH (09:00)
[2021-03-15] MEDS ORDERED: FUROSEMIDE 40 MG/4 ML VIAL IV SCH (09:00)
== END 2021-03-15 05:30 | disposition expired | DRG 235 ==
LOC: N.TELES 14:50 → N.CVR 03-04 11:17 → N.TELES 03-10 14:46 → N.ICU 03-14 11:20